=== PATIENT | male | born 1955 ===

== ENCOUNTER 2019-07-30 13:54 | Outpatient (CLI) | payer BC ==
--- NOTE | 2019-07-30 16:08 | RAD ---
THREE VIEWS LEFT HAND: Comparison: None History: Pain FINDINGS: Three views of the left hand shows no evidence of acute fracture or dislocation. There is joint space narrowing in the metacarpal phalangeal joints of the index and middle fingers. There is joint space narrowing and osteophyte formation at the first CMC joint. Joint space narrowing and osteophyte forma tion is also seen in the PIP joints of the index through the small fingers. IMPRESSION: Osteoarthritic changes involving the left hand as above. POS: EAA
--- NOTE | 2019-07-30 16:43 | RAD ---
THREE VIEWS RIGHT HAND: Comparison: None History: Hand pain. FINDINGS: Three views of the right hand shows no evidence of acute fracture or dislocation. There is joint spac e narrowing of the first CMC joint and metacarpal phalangeal joints of the index and middle fingers. Joint space narrowing and osteophyte formation is seen involving the PIP joints of the index through small fingers with surrounding soft tissue swelling. No osseous erosions are seen. 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 POS: EAA
== END 2019-07-30 13:55 | disposition home or self-care (01) ==
LOC: BICRAD 13:54
DX: M79.641 Pain in right hand (principal); M79.642 Pain in left hand; M19.042 Primary osteoarthritis, left hand; M19.041 Primary osteoarthritis, right hand

== ENCOUNTER 2021-01-29 15:40 | Outpatient (CLI) | payer BC | END 2021-01-29 15:41 | disposition home or self-care (01) | LOC: BICRAD 15:40 | PROVIDERS: ATTEND Internal Medicine | DX: M54.31 Sciatica, right side (principal); M47.816 Spondylosis without myelopathy or radiculopathy, lumbar region | CPT/HCPCS: 72100 ==